=== PATIENT | female | born 1965 | race Caucasian/White ===

== ENCOUNTER → 2016-08-21 | Outpatient (CLI) | payer MEDICARE, OTHER ==
--- NOTE | 2016-08-21 16:12 | XR ---
EXAMINATION TYPE: XR finger RT, 3 VIEWS DATE OF EXAM ORDERED: 08/21/2016 HISTORY: Abd pain R10.84 hand pain M79.641. COMPARISON: None. FINDINGS: No fracture, dislocation or other acute osseous lesion is seen. IMPRESSION: NORMAL RIGHT THUMB.
--- NOTE | 2016-08-21 16:13 | XR ---
EXAMINATION TYPE: XR abdomen 1V DATE OF EXAM ORDERED: 08/21/2016 HISTORY: Abd pain R10.84 hand pain M79.641. COMPARISON: None. FINDINGS: There has been a previous cholecystectomy. The abdominal gas pattern is normal. There is no evidence of obstruction or free air. No unusual calc ifications are seen. IMPRESSION: NO ACUTE INTRA-ABDOMINAL ABNORMALITY.
== END | disposition home or self-care (01) ==
LOC: RADXRMAIN 15:34
PROVIDERS: ATTEND Family Medicine
DX: M79.641 Pain in right hand (principal); R10.84 Generalized abdominal pain
CPT/HCPCS: 74000

== ENCOUNTER → 2018-12-26 | Outpatient (CLI) | payer MEDICARE, OTHER ==
--- NOTE | 2018-12-28 21:08 | CT ---
EXAMINATION TYPE: CT abdomen pelvis wo/w con DATE OF EXAM: 12/26/2018 COMPARISON: NONE HISTORY: 53-year-old female with abdominal pain. History of stomach and colon ca. TECHNIQUE: Contiguous axial scanning of the abdomen and pelvis before and after administration of 100 ml Isovue-300 IV contrast. Delayed images through the kidneys and coronal/sagittal reconstructions performed. CT DLP: 3668.3 mGycm Automated exposure control for dose reduction was used. FINDINGS: Heart normal size without pericardial effusion. Lung bases clear without pleural effusion. Liver enlarged at 21.1 cm with low attenuation. No focal lesion seen. No biliary ductal dilatation. P ortal venous system is patent. Cholecystectomy clips. Small diverticulum of the second portion of the duodenum projecting into the pancreatic head region. Adrenal glands, spleen, and pancreas appear within normal limits. Bilateral small renal parapelvic cysts and a couple of hypodense lesions within the upper pole of the left kidney measuring up to 1.6 cm, a couple which are too small for accurate CT characterization, l ikely cysts. No dilated small bowel, free fluid, or free air. Some surgical material is present in the left upper quadrant marginating the posterior wall of the ga stric fundus. Small fatty umbilical hernia. Some thickened soft tissue is present along the anterior abdominal wall musculature of the lower abdo men, likely scarring. There is a small omental fat-containing hernia in the right paramedian infraumb ilical region measuring 3.2 cm wide. Just subjacent, there is a small Jorgensen-type hernia involving a nonobstructed small bowel loop. There is some soft tissue thickening in this region, for example, ax ial image 63 through 68 that could represent scarring. Anastomotic staple line is present just to the right. Scattered nonenlarged mesenteric lymph nodes are noted. Normal appendix. Nvyn-lh-hfulrakd stool. Mild diverticular change along the proximal sigmoid. No david colonic inflammatory change. Staple line at the distal rectum from prior resection and reanastomosis. Uterus surgically absent. Left ovary visualized. Right ovary not clearly delineated from bowel loops. Pelvic platelets. No abnormal fluid collection in the pelvis or pelvic lymphadenopathy seen. Bones: Mild degenerative disc disease lower lumbar spine. IMPRESSION: 1. FOCAL THICKENING ALONG THE ANTERIOR LOWER ABDOMINAL WALL MUSCULATURE, SUSPECTED SCAR TISSUE FORMAT ION. HOWEVER, THERE IS A SMALL JORGENSEN-TYPE HERNIA AT THIS LEVEL CONTAINING A LOOP OF NONOBSTRUCTED S MALL BOWEL. ADDITIONAL SOFT TISSUE THICKENING JUST DEEP TO THE ABDOMINAL WALL MUSCULATURE ABOUT THE S MALL BOWEL. COULD REPRESENT ADDITIONAL SCAR TISSUE. SEROSAL METASTATIC DISEASE OR PERITONEAL IMPLANTS (AXIAL IMAGE 63 THROUGH 68) DIFFICULT TO ENTIRELY EXCLUDE AT THIS TIME WITHOUT A COMPARISON EXAM TO DETERMINE STABILITY. SHORT INTERVAL FOLLOW-UP RECOMMENDED. 2. 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 3. MILD PROXIMAL SIGMOID DIVERTICULOSIS. STAPLE LINE AT THE DISTAL SIGMOID FROM PRIOR RESECTION AND R EANASTOMOSIS. ADDITIONAL SURGICAL MATERIAL ALONG THE POSTERIOR MARGIN OF THE GASTRIC FUNDUS.
== END | disposition home or self-care (01) ==
LOC: RADCTMAIN 15:37
PROVIDERS: ATTEND Family Medicine
DX: K42.9 Umbilical hernia without obstruction or gangrene (principal); K76.0 Fatty (change of) liver, not elsewhere classified; K57.30 Diverticulosis of large intestine without perforation or abscess without bleeding; Z98.890 Other specified postprocedural states
CPT/HCPCS: 74178; Q9967

== ENCOUNTER → 2020-09-13 | Outpatient (CLI) | payer MEDICARE, OTHER ==
--- NOTE | 2020-09-13 16:37 | CT ---
EXAMINATION TYPE: CT abdomen pelvis wo/w con DATE OF EXAM: 09/13/2020 COMPARISON: 12/26/2018 INDICATION: Abdominal pain. Follow up stomach and colon cancer. DLP: 3948.4 mGycm, Automated exposure control for dose reduction was used. CONTRAST: 100 mL of Isovue M300. Study performed with Oral Contrast TECHNIQUE: Axial images were obtained from above the diaphragm to the pubic rami in the axial plane a t 5 mm thick sections. Reconstructed images are reviewed on the computer in the coronal plane. FINDINGS: Limited CT sections are obtained the lung bases. The lung bases are clear. CT ABDOMEN: Postsurgical changes are at the gastric cardia. Wall thickening along the greater curvatu re proximal stomach is not excluded. This measures 1.5 cm thickness. Stomach otherwise appears unrema rkable. Liver: Normal Spleen: Normal Pancreas: Normal Adrenal glands: The adrenal glands are normal. Gallbladder: Surgically absent Kidneys: No masses are evident. No hydronephrosis is present. No cysts are present. No renal stone s are evident. Post contrast imaging appears normal. Some peripelvic cysts are present. Aorta: Normal Inferior vena cava: Normal. CT PELVIS: There is an anterior abdominal wall hernia containing nondilated loops of bowel. This is i n the periumbilical region. Loops of bowel within the abdomen and pelvis are normal. Diverticular changes are within the sigmoid colon. There are loops of bowel which are incompletely distended or lack oral contrast limiting th eir evaluation. Appendix: Not visualized. No suspicious dilated tubular structures or inflammatory changes are eviden t. Urinary bladder: Normal. Genitourinary structures: Uterus and ovaries are not identified. Osseous structures: No suspicious lytic or sclerotic lesions. IMPRESSIONS: 1. There may be some wall thickening along the greater curvature anterior proximal wall of the stoma ch up to 1.5 cm in depth. The remaining portions of the stomach wall appear normal. Consider follow-u p EGD. 2. Anterior abdominal wall hernia containing nonobstructed bowel loops. 3. Diverticulosis without acute diverticulitis.
== END | disposition home or self-care (01) ==
LOC: RADCTMAIN 12:46
PROVIDERS: ATTEND Family Medicine
DX: C18.9 Malignant neoplasm of colon, unspecified (principal); C16.9 Malignant neoplasm of stomach, unspecified; K43.9 Ventral hernia without obstruction or gangrene; K57.90 Diverticulosis of intestine, part unspecified, without perforation or abscess without bleeding
CPT/HCPCS: 74178; Q9967 ×2

== ENCOUNTER → 2021-05-11 | Outpatient (CLI) | payer MEDICARE, OTHER ==
--- NOTE | 2021-05-11 15:27 | US ---
EXAMINATION TYPE: US carotid duplex BILAT DATE OF EXAM: 05/11/2021 COMPARISON: NONE CLINICAL HISTORY: Syncope R55. syncope, no h/o stroke EXAM MEASUREMENTS: RIGHT: Peak Systolic Velocity (PSV) cm/sec ----- Right CCA: 94.0 ----- Right ICA: 86.4 ----- Right ECA: 121.1 ICA/CCA ratio: 0.9 RIGHT: End Diastole cm/sec ----- Right CCA: 29.2 ----- Right ICA: 39.1 ----- Right ECA: 13.7 LEFT: Peak Systolic Velocity (PSV) cm/sec ----- Left CCA: 98.3 ----- Left ICA: 94.9 ----- Left ECA: 80.8 ICA/CCA ratio: 1.0 LEFT: End Diastole cm/sec ----- Left CCA: 38.7 ----- Left ICA: 44.3 ----- Left ECA: 20.6 VERTEBRALS (direction of flow): Right Vertebral: Antegrade Left Vertebral: Antegrade Rhythm: Normal Mild homogeneous plaque with no stenosis seen IMPRESSION: No evidence for hemodynamically significant stenosis. Criteria for Assigning % of Stenosis / Diameter reduction (Estimation based on the indirect measurements of the internal carotid artery velocities (ICA PSV). 1. Normal (no stenosis)=ICA PSV < 125 cm/s: ratio < 2.0: ICA EDV<40 cm/s. 2. Less than 50% stenosis=ICA PSV < 125 cm/s: ratio < 2.0: ICA EDV<40 cm/s. 3. 50 to 69% stenosis=ICA PSV of 125 to 230 cm/s: ration 2.0 ? 4.0: ICA EDV 40-100 cm/s. 4. Greater than 70% stenosis to near occlusion= ICA PSV > 230 cm/s: ratio > 4.0: ICA EDV > 100 cm/s. 5. Near occlusion= ICA PSV velocities may be low or undetectable: variable ratio and ICA EDV. 6. Total occlusion=unable to detect flow.
== END | disposition home or self-care (01) ==
LOC: RADUSWWP 14:22
PROVIDERS: ATTEND Family Medicine
DX: R55 Syncope and collapse (principal)
CPT/HCPCS: 93880

== ENCOUNTER → 2021-05-23 | Outpatient (CLI) | payer MEDICARE, OTHER ==
--- NOTE | 2021-05-24 19:17 | ECHOF ---
Referral Reason:R55 syncope MEASUREMENTS -------- HEIGHT: 162.6 cm WEIGHT: 112.0 kg BP: 137/76 RVIDd: 3.5 cm (< 3.3) IVSd: 1.2 cm (0.6 - 1.1) LVIDd: 4.2 cm (3.9 - 5.3) LVPWd: 1.3 cm (0.6 - 1.1) IVSs: 1.6 cm LVIDs: 2.9 cm LVPWs: 1.8 cm LA Diam: 3.4 cm (2.7 - 3.8) LAESV Index (A-L): 23.93 ml/m Ao Diam: 3.1 cm (2.0 - 3.7) AV Cusp: 2.3 cm (1.5 - 2.6) MV EXCURSION: 15.965 mm (> 18.000) MV EF SLOPE: 85 mm/s (70 - 150) EPSS: 0.6 cm MV E Nawaf: 0.82 m/s MV DecT: 150 ms MV A Nawaf: 0.77 m/s MV E/A Ratio: 1.06 RAP: 5.00 mmHg RVSP: 24.03 mmHg FINDINGS -------- Sinus rhythm. This was a technically good study. The left ventricular size is normal. There is mild concentric left ventricular hypertrophy. Overa ll left ventricular systolic function is normal with, an EF between 55 - 60 %. The right ventricle is mildly enlarged. Normal LA size by volume 22+/-6 ml/m2. The right atrium is normal in size. Interatrial and interventricular septum intact. Probably trileaflet AV with no stenosis or regurgitation. There is trace mitral regurgitation. Mild tricuspid regurgitation present. Right ventricular systolic pressure is normal at < 35 mmHg. Trace/mild (physiologic) pulmonic regurgitation. The aortic root size is normal. Normal inferior vena cava with normal inspiratory collapse consistent with estimated right atrial pre ssure of 5 mmHg. There is no pericardial effusion. CONCLUSIONS -------- 1. The left ventricular size is normal. 2. There is mild concentric left ventricular hypertrophy. 3. Overall left ventricular systolic function is normal with, an EF between 55 - 60 %. 4. The right ventricle is mildly enlarged. 5. Probably trileaflet AV with no stenosis or regurgitation. 6. There is trace mitral regurgitation. 7. Mild tricuspid regurgitation present. 8. Trace/mild (physiologic) pulmonic regurgitation. 9. There is no pericardial effusion. ACCOUNTS RECEIVABLE SUPERVISOR: Elle Rich RDCS
== END | disposition home or self-care (01) ==
LOC: RADECHMAIN 12:01
PROVIDERS: ATTEND Family Medicine
DX: R55 Syncope and collapse (principal); I51.7 Cardiomegaly; I34.0 Nonrheumatic mitral (valve) insufficiency
CPT/HCPCS: 93270; 93306

== ENCOUNTER → 2022-10-09 | Outpatient (CLI) | payer MEDICARE, OTHER ==
--- NOTE | 2022-10-10 09:54 | MM ---
Reason for Exam: Screening (asymptomatic). Last mammogram was performed 10 year(s) and 5 month(s) ago. Patient History: Menarche at age 9. First Full-Term at age 14. Hysterectomy at age 37. Postmenopausal. Colorectal cancer, age 47. Previous chemotherapy at age 47. Maternal aunt had breast cancer. Risk Values: Krista 5 year model risk: 1.1%. NCI Lifetime model risk: 6.1%. Prior Study Comparison: 11/22/2005 Screening Mammogram, [facility]. 08/23/2010 Bilateral Screening Mammogram, [facility]. 05/16/2012 Bilateral Screening Mammogram, [facility]. Tissue Density: There are scattered fibroglandular densities. Findings: Analyzed By CAD. There is no suspicious group of microcalcifications or new suspicious mass in either breast. Overall Assessment: Negative, BI-RAD 1 Management: Screening Mammogram of both breasts in 1 year. . Patient should continue monthly self-breast exams. A clinical breast exam by your physician is recommended on an annual basis. This exam should not preclude additional follow-up of suspicious palpable abnormalities. Note on Krista scores and lifetime risk: 1. A Krista score greater than 3% is considered moderate risk. If this is the case, consider specialist referral to assess eligibility for a risk reducing agent. 2. If overall lifetime risk for the development of breast cancer is 20% or higher, the patient may qualify for future screening with alternating mammogram and breast MRI. Electronically signed and approved by: Brian Scales M.D. Radiologis
== END | disposition home or self-care (01) ==
LOC: RADMAMWWP 15:52
PROVIDERS: ATTEND Internal Medicine Geriatric Medicine
DX: Z12.31 Encounter for screening mammogram for malignant neoplasm of breast (principal); Z78.0 Asymptomatic menopausal state; Z80.3 Family history of malignant neoplasm of breast
CPT/HCPCS: 77063; 77067